=== PATIENT | female | born 2000 | race American Indian/Alaskan Native ===

== ENCOUNTER 2021-04-02 19:05 | Emergency (ER) | payer SELFPAY ==
--- NOTE | 2021-04-02 20:04 | Emergency Department Report ---
ED Headache HPI - General Chief Complaint: Headache Stated Complaint: ROBLES Time Seen by Provider: 04/02/21 19:58 - History of Present Illness Initial Comments: This very pleasant 20-year-old female with a past medical history of recurrent headaches who presents the emergency department chief complaint of a gradual onset headache over the past 3 days. She states that over the last few years she has been getting recurrent headaches and this feels similar although it is not getting much better with home remedies that she normally is able to get relief from. She denies any head injury, denies any fever, chills, night sweats, neck stiffness, nausea,, diarrhea, sensitivity to light, vision changes, chest pain, shortness of breath, weakness or any other associated symptoms. Home Medications: Ambulatory Orders Butalb/Acetaminophen/Caffeine [Fioricet 50-300-40 mg CAP] 1 cap PO Q6HR PRN #12 cap 04/02/21 ED Review of Systems ROS: Stated complaint: ROBLES Other details as noted in HPI Comment: All other systems reviewed and negative Constitutional: denies: chills, fever Eyes: denies: eye pain, eye discharge, vision change ENT: denies: ear pain, throat pain Respiratory: denies: cough, shortness of breath, wheezing Cardiovascular: denies: chest pain, palpitations Endocrine: no symptoms reported Gastrointestinal: denies: abdominal pain, nausea, diarrhea Genitourinary: denies: urgency, dysuria, discharge Musculoskeletal: denies: back pain, joint swelling, arthralgia Skin: denies: rash, lesions Neurological: as per HPI, headache. denies: weakness, paresthesias Psychiatric: denies: anxiety, depression Hematological/Lymphatic: denies: easy bleeding, easy bruising ED Past Medical Hx - Past Medical History Previous Medical History?: No - Surgical History Past Surgical History?: No - Medications Home Medications: Home Medications Medication Instructions Recorded Confirmed Last Taken Type Butalb/Acetaminophen/Caffeine 1 cap PO Q6HR PRN #12 cap 04/02/21 Unknown Rx [Fioricet 50-300-40 mg CAP] ED Physical Exam - General Limitations: No Limitations General appearance: alert, in no apparent distress - Head Head exam: Present: atraumatic, normocephalic - Eye Eye exam: Present: normal appearance, PERRL, EOMI Pupils: Present: normal accommodation - ENT ENT exam: Present: normal exam, normal orophraynx, mucous membranes moist - Neck Neck exam: Present: normal inspection, full ROM. Absent: tenderness, meningismus - Respiratory Respiratory exam: Present: normal lung sounds bilaterally. Absent: respiratory distress, wheezes, rales, rhonchi, stridor - Cardiovascular Cardiovascular Exam: Present: regular rate, normal rhythm, normal heart sounds. Absent: systolic murmur, diastolic murmur, rubs, gallop - GI/Abdominal GI/Abdominal exam: Present: soft, normal bowel sounds. Absent: distended, tenderness, guarding, rebound, rigid - Extremities Exam Extremities exam: Present: normal inspection, full ROM, normal capillary refill. Absent: tenderness, calf tenderness - Back Exam Back exam: Present: normal inspection, full ROM. Absent: tenderness, CVA tenderness (R), CVA tenderness (L) - Neurological Exam Neurological exam: Present: alert, oriented X3, CN II-XII intact, normal gait - Psychiatric Psychiatric exam: Present: normal affect, normal mood - Skin Skin exam: Present: warm, dry, intact, normal color. Absent: rash ED Course Vital Signs 04/02/21 19:41 Pulse Rate 71 Respiratory 16 Rate Blood Pressure 125/71 [Right] O2 Sat by Pulse 100 Oximetry ED Medical Decision Making - Medical Decision Making Patient well-appearing. Nontoxic in no acute distress. Vital signs are stable. Neurologic exam is unremarkable. This gradual onset headache making my suspicion for subarachnoid hemorrhage low at this time. No fever or neck stiffness making meningitis unlikely. No focal neurologic deficits making CVA or TIA unlikely. I suspect the patient's symptoms are likely secondary to migraine versus tension versus cluster headache. I did offer to to IV medications including a IV fluid bolus, Reglan and Benadryl however the patient politely declined stating she would rather take oral medication. [facility] and recommended increase fluid hydration and rest and will give outpatient primary care follow-up. Recommend she return to the emergency department any change or worsening symptoms. She verbalized understand the diagnosis, treatment and follow instructions all of her questions were answered. - Differential Diagnosis Cluster headache, tension headache, migraine Critical care attestation.: If time is entered above; I have spent that time in minutes in the direct care of this critically ill patient, excluding procedure time. ED Disposition Clinical Impression: Headache Qualifiers: Headache type: unspecified Headache chronicity pattern: acute headache Intractability: not intractable Qualified Code(s): R51.9 - Headache, unspecified Disposition: 01 HOME / SELF CARE / HOMELESS Is pt being admited?: No Condition: Stable Instructions: Recurrent Migraine Headache, [id number] Prescriptions: Butalb/Acetaminophen/Caffeine [Fioricet 50-300-40 mg CAP] 1 cap PO Q6HR PRN #12 cap PRN Reason: Headache Referrals: [facility] [Provider Group] - 3-5 Days MIRANDA MELTON MD [Staff Physician] - 3-5 Days Forms: Work/School Release Form(ED) Time of Disposition: 20:03
[2021-04-02 21:04] VITALS: BP 120/80
== END 2021-04-02 21:01 | disposition home or self-care (01) ==
LOC: ED 19:05
DX: R51.9 Headache, unspecified (principal)
CPT/HCPCS: 99282